=== PATIENT | male | born 1955 | race Caucasian/White ===

== ENCOUNTER 2017-05-02 18:35 | Emergency (ER) | payer BC ==
[2017-05-02 18:47] VITALS: BP 167/93; PULSE 82; RESP 18; TEMP 98.1; O2SAT 96
--- NOTE | 2017-05-02 19:15 | EDPHY ---
H & P Stated Complaint: R foot painful/swollen since getting off an airplane last evening Time Seen by Provider: 05/02/17 18:51 HPI/ROS: CHIEF COMPLAINT: Right foot pain and swelling HISTORY OF PRESENT ILLNESS: The patient is anticoagulated 61 y/o male complaining of acute onset right foot pain and swelling that began on a flight home from [place] last night. He has a history of atrial fibrillation, but no prior history of gout. He noticed his foot was swollen upon arriving in the airport last night. His pain worsened throughout the evening and kept him up last night. His pain is aggravated by movement and palpation and has caused difficulty walking today. He used Tylenol today without improvement in his pain. No calf pain or swelling, shortness of breath, chest pain, fever, recent trauma, or other complaints. - Personal History Current Tetanus Diphtheria and Acellular Pertussis (TDAP): Yes Tetanus Vaccine Date: < 10 - Medical/Surgical History PMH: 1. Atrial fibrillation - Eliquis 2. Hypertension Hx Cardiac Disease: Yes Other PMH: afib. HTN. thyroid - Social History Smoking Status: Former smoker Additional Social History: Former smoker. Lives in [place]. Employed. - Physical Exam Exam: General Appearance: Alert, pleasant Extremities: Right foot-erythema, swelling, and tenderness MTP of the great toe. No pedal edema, no calf tenderness Cardiovascular: Normal capillary refill Neurological: normal motor/sensory exam rt foot Skin: Warm and dry Constitutional: Initial Vital Signs Temperature (C) 36.7 C 05/02/17 18:45 Heart Rate 82 05/02/17 18:45 Respiratory Rate 18 05/02/17 18:45 Blood Pressure 167/93 H 05/02/17 18:45 O2 Sat (%) 96 05/02/17 18:45 O2 Delivery Mode Room Air Allergies/Adverse Reactions: Penicillins Allergy (Unknown, Verified 05/02/17 18:43) as kid Home Medications: Medication Instructions Recorded Lipitor 10 mg (RX) 02/13/13 Synthroid 02/13/13 Valsartan [Diovan] 02/13/13 Apixaban [Eliquis] 5 mg PO BID 05/02/17 Hydrocodone/APAP 5/325 [Grady 1 - 2 tab PO Q4H PRN #10 tab 05/02/17 5/325] Nebivolol HCl [Bystolic 5 mg (*)] 5 mg PO DAILY 05/02/17 metFORMIN SR [Glucophage XR 500 mg 500 mg PO 05/02/17 (*)] predniSONE 40 mg PO DAILY #8 tab 05/02/17 Medical Decision Making ED Course/Re-evaluation: This is an anticoagulated 61 y/o male who presents with gout. No systemic infectious symptoms, lymphangitis, or fever; doubt joint infection/cellulitis. No clinical concern for DVT. NSAID's contraindicated b/c of anticoagulation. Prednisone 40mg orally given and rx for Prednisone. Hard sole shoe for comfort. Recommended follow up with PCP this week. Return precautions discussed. He is comfortable with this plan. Differential Diagnosis: Differential diagnosis includes does not limited to cellulitis, joint infection , foreign body foot. - Data Points Medications Given: Discontinued Medications Hydrocodone Bitart/Acetaminophen (Grady 5/325mg Prepack#6) 1 btl TAKEHOME EDNOW ONE Stop: 05/02/17 19:47 Last Admin: 05/02/17 19:48 Dose: 1 btl Prednisone (Prednisone) 40 mg PO EDNOW ONE Stop: 05/02/17 19:22 Last Admin: 05/02/17 19:39 Dose: 40 mg Departure - Departure Disposition: Home, Routine, Self-Care Clinical Impression: Gout Qualifiers: Gout site: toe Gout etiology: unspecified cause Chronicity: acute Laterality: right Qualified Code(s): M10.9 - Gout, unspecified Condition: Good Instructions: Hydrocodone/Acetaminophen (By mouth), Low Purine Diet (ED), Gout (ED) Additional Instructions: 1. Use 500mg Tylenol (acetaminophen) every 4-6 hours as needed for pain not to exceed 3000mg in 24 hours. 2. Use Vicodin as prescribed every 4-6 hours when needed for severe pain. This medication contains acetaminophen so you should not use it within 4 hours of Tylenol use. Watch total daily milligrams of acetaminophen closely. It will also make you drowsy, so do not use it prior to driving or using heavy machinery. 3. Wear hard-soled shoe for comfort. Bear weight as tolerated. 4. Follow up with your primary care provider for reevaluation in 3-5 days. 5. Return to the ED if the redness increases in size and starts going up your foot or leg, if you develop fever, or experience other worsening of condition. Referrals: Rosy Resendiz MD [Primary Care Provider] - As per Instructions Prescriptions: Hydrocodone/APAP 5/325 [Grady 5/325] 1 - 2 tab PO Q4H PRN #10 tab PRN Reason: Pain, Moderate predniSONE 40 mg PO DAILY #8 tab Report Scribed for: Ayleen Bass Report Scribed by: Otilia Guerrero Date of Report: 05/02/17 Time of Report: 19:15 Physician Review and Approval Statement: 05/02/17 19:15 Portions of this note were transcribed by a behavioral medical director. I personally performed a history, physical exam, medical decision making, and confirmed accuracy of information the transcribed note.
[2017-05-02] MEDS ORDERED: predniSONE 20 MG TAB PO ONE (19:21)
[2017-05-02] MEDS ORDERED: HYDROCOD/APAP 5/325 PREPACK#6 BTL TAKEHOME ONE (19:46)
== END 2017-05-02 19:50 | disposition home or self-care (01) ==
DX: M10.9 Gout, unspecified (principal); I10 Essential (primary) hypertension; Z87.891 Personal history of nicotine dependence
CPT/HCPCS: J7512

== ENCOUNTER 2018-08-25 10:37 | Emergency (ER) | payer BC ==
[2018-08-25 10:46] VITALS: BP 125/93
--- NOTE | 2018-08-25 11:25 | EDPHY ---
General - History Smoking Status: Former smoker Time Seen by Provider: 08/25/18 10:57 Narrative: CLINICAL IMPRESSION: Right bullock contusion inpatient on anticoagulation ASSESSMENT/PLAN: 63-year-old male presents to the emergency department with a contusion to the right bullock and complaints of persistent pain and swelling a week after the incident. Patient is requesting an x-ray which is negative today. He has no open wound. He has no clinical signs to suggest compartment syndrome, necrotizing fasciitis, deep space infection, or large drainable hematoma. Distal neurovascular exam intact . No evidence of joint involvement. Compression and heat therapy suggested, PCP follow-up recommended, Erickson wrap placed in the emergency department, warning signs return to ED sooner discussed and discharge. DIFFERENTIAL DX: Differential includes but not limited to acute fracture, strain/sprain, joint dislocation, soft tissue contusion ED PROCEDURES: Procedure: Splint placement. A Erickson wrap splint was applied to right bullock by network technical analyst, supervised by myself. After application of the splint I returned and re-examined the patient. The splint was adequately immobilizing the joint and distal to the splint the patient's circulation and sensation was intact. ED COURSE: 11:20 a.m.: X-rays reviewed by myself, no evidence of underlying fracture. CHIEF COMPLAINT: Right bullock pain HPI: 63-year-old male presents to the emergency department with approximately 1 week of right bullock pain and swelling after he hit his bullock forcefully against the corner of a car door. Patient reports he has had persistent swelling and pain since that time. He is anticoagulated on Eliquis for history of atrial fibrillation. He had done some icing early on but has not done any treatment thus far. No open wounds nor does he describe history of open wounds at the time of accident. No history of osteoporosis or fragility fractures. No knee or ankle pain. No calf swelling erythema or warmth. PAST MEDICAL HISTORY: Hypertension, atrial fibrillation, pre diabetes, gout Pertinent Past Surgical History: None reported Social History: Nonsmoker REVIEW OF SYSTEMS: All other systems negative Constitutional: No fever, no chills Musculoskeletal: No deformity, no joint pain Skin: No rashes, positive for color change or open wounds. Neurological: No sensory loss or weakness. PHYSICAL EXAM: General Appearance: Alert, oriented, appropriate for age, cooperative, NAD, well hydrated, non-toxic appearing, lying comfortably in the bed VSS, no hypoxia. Neurological: Alert and oriented x 3, normal sensation and strength of extremities Skin: Mild bruising noted to right anterior bullock, yellowish in discoloration, no open wound Musculoskeletal: Full range of motion of ankle and knee. Calf soft with no suggestion of underlying DVT. Compartments soft with no suggestion of compartment syndrome. Distal neurovascular exam intact. Obvious swelling and discomfort to anterior right bullock associated with contusion. MEDICAL DECISION MAKING: Patient was seen independently. Secondary supervising physician at time of evaluation was Dr. Rapp . Diagnosis: Right bullock contusion. New, requires workup Summary: See assessment and plan for summary of ED visit Independent visualization of images, tracing, or specimens yes. Patient Progress: Stable for discharge. (Tristan Pinto) Discussion: The patient was evaluated and managed by the Physician Change Management Specialist. My co- signature indicates that I have reviewed this chart and I agree with the findings and plan of care as documented. I am the secondary supervising physician. (Mary Rapp) - Objective Vital Signs: Initial Vital Signs Temperature (C) 36 C 08/25/18 10:43 Heart Rate 58 L 08/25/18 10:43 Respiratory Rate 18 08/25/18 10:43 Blood Pressure 125/93 H 08/25/18 10:43 O2 Sat (%) 97 08/25/18 10:43 O2 Delivery Mode Room Air Allergies/Adverse Reactions: Penicillins Allergy (Unknown, Verified 05/02/17 18:43) as kid Home Medications: Medication Instructions Recorded Lipitor 10 mg (RX) 02/13/13 Synthroid 02/13/13 Valsartan [Diovan] 02/13/13 Apixaban [Eliquis] 5 mg PO BID 05/02/17 Nebivolol HCl [Bystolic 5 mg (*)] 5 mg PO DAILY 05/02/17 metFORMIN SR [Glucophage XR 500 mg 500 mg PO 05/02/17 (*)] Allopurinol 08/25/18 Amlodipine Besylate 08/25/18 Losartan Potassium 08/25/18 Departure - Departure Disposition: Home, Routine, Self-Care Clinical Impression: Contusion of skin Condition: Good Instructions: Hematoma (ED) Additional Instructions: DISCHARGE INSTRUCTIONS FROM YOUR DOCTOR Thank you for visiting our emergency department today. You were treated by a physician assistant principal today and your case was reviewed with our ED Attending physician. Please keep in mind that discharge from the emergency department does not mean that there is nothing wrong - it simply means that we have not identified an emergency condition that requires further evaluation or treatment in the hospital. You should always plan to follow up with primary care for re- evaluation of your condition in the next 2-3 days. If you have been referred to a specialist, please call as soon as possible (today or tomorrow) to schedule your follow up appointment at the appropriate time. X-RAYS ARE REASSURING, NO EVIDENCE OF UNDERLYING FRACTURE. CLINICALLY, YOU DO NOT HAVE ANY SIGNS TO SUGGEST COMPARTMENT SYNDROME, DEEP VEIN CLOT, SECONDARY INFECTION, NECROSIS, DEEP SPACE INFECTION, OR NEUROVASCULAR COMPROMISE. YOU CAN TRY WARM COMPRESSES WELL A COMPRESSION WRAP TO THE LEG OR COMPRESSION STOCKINGS. BEING ON ANTICOAGULATION THERAPY WILL TAKE LONGER FOR A DEEP TISSUE HEMATOMA TO RESOLVE. PLEASE FOLLOW-UP WITH A PRIMARY CARE DOCTOR NEXT WEEK. RETURN TO THE EMERGENCY DEPARTMENT FOR SEVERE OR WORSENING LEG SWELLING OR TIGHTNESS, LOSS OF PULSES OR LOSS OF SENSATION TO THE FOOT, FEVERS OR CHILLS, SEVERE PAIN, OR ANY OTHER CONCERNS. People present with illnesses and injuries in different ways, and it is always possible that we have missed something. You may always return for re-evaluation if symptoms worsen or if they are not improving or if you develop new/different symptoms. Again, thank you for choosing our emergency department. We hope that you feel better. Referrals: Rosy Resendiz MD [Primary Care Provider] - 2-3 days, call for appt.
== END 2018-08-25 11:40 | disposition home or self-care (01) ==
DX: S80.11XA Contusion of right lower leg, initial encounter (principal); I10 Essential (primary) hypertension; I48.91 Unspecified atrial fibrillation; R73.03 Prediabetes; Z79.01 Long term (current) use of anticoagulants; W22.8XXA Striking against or struck by other objects, initial encounter; Y92.810 Car as the place of occurrence of the external cause